=== PATIENT | female | born 1975 | race African-American/Black ===

== ENCOUNTER 2016-09-28 11:21 | Emergency (ER) | payer OTHER ==
[2016-09-28 11:29] VITALS: TEMP 98.2; O2SAT 98
--- NOTE | 2016-09-28 12:28 | CPEKG ---
Heart Rate: 68 RR Interval: 882 P-R Interval: 148 QRSD Interval: 76 QT Interval: 412 QTC Interval: 439 P [place]: 32 QRS [place]: 14 T Wave [place]: 16 EKG Severity - OTHERWISE NORMAL ECG - EKG Impression: SINUS RHYTHM EKG Impression: ATRIAL PREMATURE COMPLEX Electronically Signed By: Julio C Cabrera 28-Sep-2016 22:18:20
[2016-09-28] MEDS ORDERED: NS 1,000 ML IV ONE (12:53)
[2016-09-28 13:04] LABS: % IMMATURE GRANULYOCYTES 0.5 % (0.0-1.1); ABSOLUTE IMMATURE GRANULOCYTES 0.06 10^3/uL (0.00-0.10); ADD DIFF? NO; ADD MORPH? NO; ADD SCAN? NO; ATYPICAL LYMPHOCYTE FLAG 0 (0-99); FRAGMENT RBC FLAG 0 (0-99); HEMATOCRIT 43.8 % (38.0-47.0); HEMOGLOBIN 14.9 g/dL (12.6-16.3); LEFT SHIFT FLG 0 (0-99); LIPEMIA HEMOLYSIS FLAG 90 (0-99); MEAN CELL HEMOGLOBIN 29.7 pg (27.9-34.1); MEAN CELL VOLUME 87.3 fL (81.5-99.8); MEAN PLATELET VOLUME 11.9 fL (8.7-11.7); PLATELET CLUMPS FLAG 10 (0-99); PLATELET COUNT 170 10^3/uL (150-400); RED BLOOD CELL COUNT 5.02 10^6/uL (4.18-5.33); RED CELL DISTRIBUTION WIDTH 12.8 % (11.5-15.2)
--- NOTE | 2016-09-28 13:32 | EDPHY ---
H & P Time Seen by Provider: 09/28/16 12:52 HPI/ROS: Chief complaint. Palpitations HPI. Patient is a 41 year female who in June had hernia repair abdominoplasty. She has fluid reaccumulating her low abdomen at the surgical site. She had a drain placed 4 days ago for fluid removal in since that time she has palpitations and since sense of skipped beats. She has bump feeling in her chest with the irregular beats. When she lies down she has a cough. She feels like she can't take full breath. She says some sense of central weight or pressure. No unusual leg pain or swelling. The drain was removed yesterday. She also has some dizziness today. No fever. Cough is nonproductive. Again she had a drain out yesterday and feels fluid is reaccumulating. She does have some discomfort at the incision site in the low abdomen but there is no redness. ROS Constitutional. no fever/chills, no weakness Eyes. no problems with vision ENT. no sore throat, no nasal drainage Cardiovascular. Chest pressure Respiratory. Slight shortness of breath and cough especially with lying down Abdominal. Fluid accumulation at surgical site with some tenderness at this area. Otherwise no vomiting or diarrhea . no problems urinating MS. no calf pain/swelling, no neck/back pain, no joint pain Skin. no rash Lymph. no swollen glands Neuro. Slight dizziness today Past Medical/Surgical History: Past medical history significant for the abdominoplasty. Family history mother has Parkinson's. Otherwise no history of early coronary artery disease or pulmonary embolus Social History: , nonsmoker, no alcohol Smoking Status: Never smoked Physical Exam: General Appearance: Alert pleasant well-developed female mild distress vital signs are stable Eyes: Pupils equal and round no pallor or injection. ENT, Mouth: Mucous membranes are moist. Respiratory: There are no retractions, lungs are clear to auscultation. Cardiovascular: Regular rate and rhythm. Occasional skipped beat Gastrointestinal: Abdomen is soft with mild tenderness at her surgical site which does not appear to be infected. There does appear to be slight fluid reaccumulation above the incision, no masses, bowel sounds normal. Neurological: Awake and alert, sensory and motor exams grossly normal. Skin: Warm and dry, no rashes. Musculoskeletal: Neck is supple nontender. Extremities symmetrical, full range of motion. Psychiatric: Patient is oriented X 3, there is no agitation. Constitutional: Initial Vital Signs Temperature (C) 36.8 C 09/28/16 11:26 Heart Rate 74 09/28/16 11:26 Respiratory Rate 19 09/28/16 11:26 Blood Pressure 120/81 H 09/28/16 11:26 O2 Sat (%) 98 09/28/16 11:26 O2 Delivery Mode Room Air Allergies/Adverse Reactions: No Known Allergies Allergy (Verified 09/28/16 11:26) Home Medications: Medication Instructions Recorded Herbals/Supplements -Info Only 12/27/15 Medical Decision Making - Diagnostics EKG Interpretation: EKG interpreted by shows sinus rhythm normal interval and axis. QRS is otherwise normal. No significant ST elevation or depression. Occasional PA C. rate 68 Imaging Results: CT chest with IV contrast reviewed by me and discussed with shows no PE. No pneumonia. No pericardial fluid. Procedures: IV normal saline, monitor ED Course/Re-evaluation: Re-evaluation 3:10 p.m.--patient is stable. Patient and I discussed imaging lab EKG results. We discussed treatment plan including recommendation for further evaluation as well as criteria for return. She expresses understanding and agreement. Patient is offered admission however she feels well to go home and be treated as an outpatient. Differential Diagnosis: I considered pulmonary embolus, pneumonia, electrolyte abnormality, acute coronary syndrome, hyperthyroidism - Data Points Laboratory Results: Laboratory Results 09/28/16 12:45 09/28/16 12:45 09/28/16 09/28/16 09/28/16 12:45 12:45 12:45 WBC 11.22 10^3/uL H 10^3/uL (3.80-9.50) RBC 5.02 10^6/uL 10^6/uL (4.18-5.33) Hgb 14.9 g/dL g/dL (12.6-16.3) Hct 43.8 % % (38.0-47.0) MCV 87.3 fL fL (81.5-99.8) MCH 29.7 pg pg (27.9-34.1) MCHC 34.0 g/dL g/dL (32.4-36.7) RDW 12.8 % % (11.5-15.2) Plt Count 170 10^3/uL 10^3/uL (150-400) MPV 11.9 fL H fL (8.7-11.7) Neut % (Auto) 78.1 % H % (39.3-74.2) Lymph % (Auto) 13.2 % L % (15.0-45.0) Bartholomew % (Auto) 7.0 % % (4.5-13.0) Eos % (Auto) 0.9 % % (0.6-7.6) Baso % (Auto) 0.3 % % (0.3-1.7) Nucleat RBC Rel Count 0.0 % % (0.0-0.2) Absolute Neuts (auto) 8.76 10^3/uL H 10^3/uL (1.70-6.50) Absolute Lymphs (auto) 1.48 10^3/uL 10^3/uL (1.00-3.00) Absolute Monos (auto) 0.79 10^3/uL 10^3/uL (0.30-0.80) Absolute Eos (auto) 0.10 10^3/uL 10^3/uL (0.03-0.40) Absolute Basos (auto) 0.03 10^3/uL 10^3/uL (0.02-0.10) Absolute Nucleated RBC 0.00 10^3/uL 10^3/uL (0-0.01) Immature Gran % 0.5 % % (0.0-1.1) Immature Gran # 0.06 10^3/uL 10^3/uL (0.00-0.10) D-Dimer 0.41 ug/mLFEU ug/mLFEU (0.00-0.50) Sodium 137 mEq/L mEq/L (134-144) Potassium 4.0 mEq/L mEq/L (3.5-5.2) Chloride 104 mEq/L mEq/L (97-110) Carbon Dioxide 23 mEq/l mEq/l (22-31) Anion Gap 10 mEq/L mEq/L (8-16) BUN 9 mg/dL mg/dL (7-23) Creatinine 0.7 mg/dL mg/dL (0.6-1.0) Estimated GFR > 60 Glucose 77 mg/dL mg/dL (70-100) Calcium 9.4 mg/dL mg/dL (8.5-10.4) Troponin I < 0.012 ng/mL ng/mL (0-0.034) TSH 1.000 uIU/mL uIU/mL (0.465-4.680) Medications Given: Discontinued Medications Sodium Chloride (Ns) 1,000 mls @ 0 mls/hr IV ONCE ONE; Wide Open PRN Reason: Protocol Stop: 09/28/16 12:54 Last Admin: 09/28/16 13:31 Dose: 1,000 mls Departure - Departure Disposition: Home, Routine, Self-Care Clinical Impression: Palpitations Condition: Good Instructions: Palpitations (ED) Additional Instructions: Easy activity but activity as tolerated. Drink plenty of fluids and stay hydrated. Return for worsening chest discomfort or trouble breathing. Recheck by your regular physician in the next 2-3 days. Referrals: MELISA LOPEZ [Other] - 2-3 days without fail
[2016-09-28 13:40] VITALS: RESP 16
[2016-09-28 13:42] LABS: ANION GAP 10 mEq/L (8-16); CALCIUM 9.4 mg/dL (8.5-10.4); CARBON DIOXIDE 23 mEq/l (22-31); CHLORIDE 104 mEq/L (97-110); CREATININE 0.7 mg/dL (0.6-1.0); GLOMERULAR FILTRATION RATE > 60; GLUCOSE 77 mg/dL (70-100); SODIUM 137 mEq/L (134-144)
[2016-09-28] MEDS ORDERED: IOPAMIDOL (ISOVUE 370) 100 ML BTL IV ONE (13:47)
[2016-09-28 13:55] LABS: TROPONIN I < 0.012 ng/mL (0-0.034)
[2016-09-28 15:25] VITALS: BP 117/68; PULSE 80
== END 2016-09-28 15:23 | disposition home or self-care (01) ==
DX: R00.2 Palpitations (principal); E86.9 Volume depletion, unspecified
CPT/HCPCS: Q9967

== ENCOUNTER → 2017-07-04 | Outpatient (CLI) | payer OTHER | LOC: FIMAGING 14:02 | PROVIDERS: ATTEND Family Medicine | DX: Z12.31 Encounter for screening mammogram for malignant neoplasm of breast (principal) ==

== ENCOUNTER → 2018-07-09 | Outpatient (CLI) | payer OTHER | LOC: FIMAGING 12:22 | PROVIDERS: ATTEND Family Medicine | DX: Z12.31 Encounter for screening mammogram for malignant neoplasm of breast (principal) ==